=== PATIENT | male | born 1960 | race Caucasian/White ===

== ENCOUNTER → 2016-09-27 | Outpatient (CLI) | payer OTHER | END | disposition disaster alternative care site (69) | LOC: GAMB 19:37 | DX: F10.129 Alcohol abuse with intoxication, unspecified (principal); R55 Syncope and collapse; S00.91XA Abrasion of unspecified part of head, initial encounter; V19.9XXD Pedal cyclist (driver) (passenger) injured in unspecified traffic accident, subsequent encounter; Z88.0 Allergy status to penicillin | CPT/HCPCS: A0425; A0427; J2405; J7030 ==